=== PATIENT | female | born 1985 | race Caucasian/White ===

== ENCOUNTER → 2019-10-12 | Outpatient (CLI) | payer OTHER | LOC: LAB SHORT 13:43 → LAB 13:43 | DX: J02.9 Acute pharyngitis, unspecified (principal) | CPT/HCPCS: 87077; 87081; 87185 ==

== ENCOUNTER → 2022-12-29 | Outpatient (CLI) | payer OTHER ==
[2022-12-29 16:23] LABS: Alanine Aminotransfer (ALT/SGP 9 U/L (12-78); Albumin, Blood 3.5 g/dL (3.4-5.0); Albumin/Globulin Ratio 1.3 (0.8-1.8); Alk Phos 37 U/L (50-136); Anion Gap 3 mmol/L (6-16); Aspartate Aminotrans (AST/SGOT 11 U/L (12-37); Bilirubin, Total 0.4 mg/dL (0.1-1.0); Blood Urea Nitrogen 11 mg/dL (8-24); Bun/Creatinine Ratio 11.1 (12.0-20.0); CO2, Blood 26 mmol/L (21-32); Calcium, Blood 8.8 mg/dL (8.5-10.1); Chloride, Blood 109 mmol/L (98-108); Cholesterol 182 mg/dL (50-200); Creatinine, Blood 0.99 mg/dL (0.40-1.00); Globulin, Blood 2.7 g/dL (2.2-4.0); Glomerular Filtration Rate 74 (60-); Glucose, Blood 101 mg/dL (70-99); HDL Cholesterol 61 mg/dL (>39); LDL/HDL RATIO 1.8; Low Density Lipoprotein Chol 110 mg/dL (0-110); Sodium, Blood 138 mmol/L (136-145); Total Protein, Blood 6.2 g/dL (6.4-8.2); Triglycerides 55 mg/dL (30-140); Very Low Density Lipoprot Chol 11 mg/dL (6-28)
== END | disposition home or self-care (01) ==
LOC: LAB SHORT 09:45 → LAB 09:45
PROVIDERS: Hospitalist
DX: Z00.00 Encounter for general adult medical examination without abnormal findings (principal)
CPT/HCPCS: 80053; 80061

== ENCOUNTER → 2024-02-18 | Outpatient (CLI) | payer SELFPAY ==
[2024-02-25 14:53] LABS: HPV GENOTYPE 16 BY PCR Negative; HPV GENOTYPE 18 BY PCR Negative; HPV SOURCE Cervical; HPV, OTHER HIGH RISK BY PCR Negative
== END ==
LOC: LAB 13:48 → LAB SHORT 13:48
PROVIDERS: Hospitalist
DX: Z12.4 Encounter for screening for malignant neoplasm of cervix (principal)
CPT/HCPCS: 87624; 88142